=== PATIENT | male | born 1960 | race Caucasian/White ===

== ENCOUNTER 2022-07-11 08:00 | Outpatient (CLI) | payer OTHER ==
--- NOTE | 2022-07-12 18:21 | XRAY Report ---
PROCEDURE: Elbow 3 View LT INDICATIONS: LEFT LATERAL ELBOW EPICONDYLITIS TECHNIQUE: 3 views of the elbow were acquired. COMPARISON: None FINDINGS: Bones: No fractures or dislocations. No suspicious bony lesions. In this patient with this given h istory, scrutiny is given to the lateral epicondyle. No significant findings of epicondylitis can be seen on these images. Soft tissues: There is a moderate elbow joint effusion. No suspicious soft tissue calcifications. IMPRESSION: Moderate joint effusion. No significant bony abnormality is seen by plain film. If it would be helpful for clinical management decision making, please consider a dedicated, schedule d elbow MRI for further evaluation (assuming that there is no contraindication). Reviewed by: Nick Fox MD on 07/12/2022 5:20 PM NIC Approved by: Nick Fox MD on 07/12/2022 5:20 PM NIC Station ID: [id number]
== END 2022-07-11 23:59 | disposition home or self-care (01) ==
LOC: DI.S 08:00
PROVIDERS: ATTEND Emergency Medicine
DX: M77.12 Lateral epicondylitis, left elbow (principal); M25.422 Effusion, left elbow

== ENCOUNTER 2023-06-08 15:09 | Inpatient (IN) | payer BC, OTHER ==
[2023-06-08 16:04] LABS: PT - PROTHROMBIN TIME 10.3 secs (9.9-12.6)
[2023-06-08 16:07] LABS: BASOPHILS # (AUTO) 0.1 10^3/uL (0.0-0.1); BASOPHILS % (AUTO) 0.9 %; EOSINOPHILS # (AUTO) 0.2 10^3/uL (0.0-0.7); EOSINOPHILS % (AUTO) 2.3 %; HCT - HEMATOCRIT 45.9 % (42.0-52.0); HGB - HEMOGLOBIN 15.8 g/dL (14.0-18.0); LYMPHOCYTES # (AUTO) 1.5 10^3/uL (1.5-3.5); LYMPHOCYTES % (AUTO) 19.5 %; MEAN CORPUSCULAR HEMOGLOBIN 33.8 pg (27.0-31.0); MEAN CORPUSCULAR HGB CONC 34.4 g/dL (32.0-36.0); MEAN CORPUSCULAR VOLUME 98.3 fL (80.0-94.0); MEAN PLATELET VOLUME 10.3 fL (7.4-11.4); MONOCYTES # (AUTO) 0.8 10^3/uL (0.0-1.0); MONOCYTES % (AUTO) 9.6 %; NEUTROPHILS # (AUTO) 5.3 10^3/uL (1.5-6.6); NEUTROPHILS % (AUTO) 67.4 %; RED BLOOD COUNT 4.67 10^6/uL (4.70-6.10); RED CELL DISTRIBUTION WIDTH 14.6 % (12.0-15.0); WHITE BLOOD COUNT 7.8 x10^3/uL (4.8-10.8)
[2023-06-08 16:11] LABS: ALBUMIN 4.4 g/dL (3.2-5.5); ALBUMIN/GLOBULIN RATIO 1.5 (1.0-2.2); BILIRUBIN,TOTAL 0.7 mg/dL (0.2-1.0); CALCIUM 9.5 mg/dL (8.5-10.3); CREATININE 0.5 mg/dL (0.6-1.3); POTASSIUM 4.3 mmol/L (3.5-4.5); TOTAL PROTEIN 7.3 g/dL (6.4-8.9)
[2023-06-08 16:12] LABS: PARTIAL THROMBOPLASTIN TIME 27.9 secs (24.9-33.3)
[2023-06-08 16:14] LABS: SLIDE REVIEW? Indicated
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
[2023-06-08 16:30] LABS: PLATELET ESTIMATE, MANUAL NORMAL (130-450,000) (NORMAL); PLATELET MORPHOLOGY PLATELET CLUMPING (NORMAL)
[2023-06-08] MEDS ORDERED: iohexoL-300 100 ML VIAL ONE (17:06)
--- NOTE | 2023-06-08 17:55 | CT Report ---
PROCEDURE: ANGIO HEAD W/WO INDICATIONS: R sided weakness x 2 days CONTRAST: Omni 300 100ml TECHNIQUE: Precontrast 4.5 mm thick angled axial sections acquired from the foramen magnum to the vertex. Afte r the administration of intravenous contrast, 1 mm thick sections acquired through the [place] of [place] is. Postcontrast 4.5 mm thick sections then re-acquired from the foramen magnum to the vertex. 3-di mensional poelnsy-hpuzvwebi-ynicgkagqk (MIP) and/or volume rendering reformats were acquired of the c entral intracranial vasculature. For radiation dose reduction, the following was used: automated ex posure control, adjustment of mA and/or kV according to patient size. COMPARISON: MRI brain, CTA neck 06/08/2023 FINDINGS: Image quality: Excellent. Anterior circulation: Intracranial internal carotid arteries are normal in size and flow. The flow within the paired anterior cerebral arteries is normal and symmetric. The flow within the middle cer ebral arteries is normal and symmetric. The anterior communicating artery is seen. No aneurysms are seen. Posterior circulation: Vertebral arteries are codominant. Visualized portions of the vertebral arter ies demonstrate normal caliber, and join to form a normal appearing basilar artery. Flow within the posterior cerebral arteries is normal and symmetric. No aneurysms are seen. The ventricular system and cortical sulci are unremarkable, consistent for patient's stated age. The re are areas of hypodensity in the periventricular and subcortical white matter. There is an asymmetr ic focus of hypodensity within the left thalamus corresponding to restricted diffusion on MRI brain. There is no acute intra or extra-axial fluid collection. No acute hemorrhage, mass lesion or midline shift. Brainstem is unremarkable. Globes are symmetrical. Sinuses demonstrate minimal scattered mucosal thickening. Osseous structures are intact. IMPRESSION: Asymmetric focus of low-attenuation within left pelvis most suggestive subacute ischemia. No areas of hemodynamically significant stenosis, vascular occlusion or aneurysmal dilation within th e anterior circulation. No areas of hemodynamically significant stenosis, vascular occlusion or aneurysmal dilation within th e posterior circulation. Reviewed by: Esperanza Kraft MD on 06/08/2023 5:53 PM PDT Approved by: Esperanza Kraft MD on 06/08/2023 5:53 PM PDT Station ID: [id number]
--- NOTE | 2023-06-08 17:58 | CT Report ---
PROCEDURE: ANGIO NECK W INDICATIONS: R sided weakness x 2 days CONTRAST: Omni 300 100ml TECHNIQUE: After the administration of intravenous contrast, 1.5 mm axial sections acquired from the aortic arch to the [place] of [place]. Coronal 3-D maximum intensity projection (MIP) and/or volume rendering ref ormats were then performed. For radiation dose reduction, the following was used: automated exposur e control, adjustment of mA and/or kV according to patient size. COMPARISON: MRI brain, CTA head 06/08/2023 FINDINGS: Image quality: Excellent. Carotid system: The great vessels demonstrate a conventional anatomy as they arise from the aortic a [facility]. The origins of the common carotid arteries appear patent. The common carotid arteries demonstr ate normal calibers and courses. The bifurcation regions appear normal bilaterally. Approximately 1. 6 cm from the origin there is a calcified plaque at the wall of the right internal carotid artery dem onstrating approximately 50% stenosis. No hemodynamically significant stenosis within the left sport intern al carotid artery. Posterior circulation: Vertebral arteries are codominant. The origins of the vertebral arteries appea r patent. The more superior portions of the vertebral arteries demonstrate normal course and caliber . They join to form a normal appearing basilar artery. Soft tissues: Visualized neck soft tissues demonstrate no suspicious abnormalities. The thyroid is normal in size and there are no incidental findings. Bones: No suspicious bony lesions. Visualized cervical spine appears normally aligned. IMPRESSION: Approximate 50% stenosis secondary to partially calcified plaque in the proximal aspect of the right internal carotid artery. The estimate of stenosis included in the report of the imaging study was calculated using the NASCET method CLINICAL RECOMMENDATION STATEMENTS: In patients <35 years with an ITN detected on CT, MRI, or extrathyroidal ultrasound, the Committee re commends further evaluation with dedicated thyroid ultrasound if the nodule is "e1 cm and has no susp icious imaging features, and if the patient has normal life expectancy. In patients "e35 years with an ITN detected on CT, MRI, or extrathyroidal ultrasound, the Committee r ecommends further evaluation with dedicated thyroid ultrasound if the nodule is "e1.5 cm and has no s uspicious imaging features, and if the patient has normal life expectancy. (ACR, 2014) Reviewed by: Esperanza Kraft MD on 06/08/2023 5:57 PM PDT Approved by: Esperanza Kraft MD on 06/08/2023 5:57 PM PDT Station ID: [id number]
--- NOTE | 2023-06-08 18:09 | MRI Report ---
PROCEDURE: MRI brain without contrast INDICATIONS: R leg weakness TECHNIQUE: Noncontrast axial T1 spin echo, axial T2 fast spin echo, sagittal and axial FLAIR, coronal T2 fast sp in echo, axial gradient echo, axial diffusion and ADC through the brain. COMPARISON: None. FINDINGS: Image quality: Excellent. CSF Spaces: Basal cisterns are patent. No extra-axial fluid collections. Ventricles are normal in size and shape. Brain: Focal restricted diffusion noted in the right thalamus. No mass effect or midline shift. Susce ptibility sequence unremarkable. Mild atrophy and chronic ischemic change. Normal intravascular flow voids are present. Skull and face: Calvarium has normal marrow signal. Orbits appear normal. Old healed posterior sca lp incision and C1- 2 cerclage wire Sinuses: Sinuses and mastoids are clear. IMPRESSION: Acute to subacute left thalamic lacunar infarct. No mass effect or midline shift. Reviewed by: Kwaku Casarez MD on 06/08/2023 5:07 PM NIC Approved by: Kwaku Casarez MD on 06/08/2023 5:07 PM [facility] Station ID: [id number]
[2023-06-08] MEDS ORDERED: iohexoL-300 100 ML VIAL IVP ONE (20:05)
[2023-06-08] MEDS ORDERED: CLOPIDOGREL 300 MG TABLET PO STA (20:32)
[2023-06-08] MEDS ORDERED: ASPIRIN EC 325 MG TABLET PO STA (20:32)
[2023-06-08] MEDS ORDERED: LORazepam 2 MG/ML VIAL IVP STA (20:35)
[2023-06-08] MEDS ORDERED: ATORVASTATIN 40 MG TABLET PO STA (20:38)
[2023-06-08] MEDS ORDERED: ONDANSETRON 4 MG/2 ML VIAL IVP PRN (20:58)
[2023-06-08] MEDS ORDERED: SODIUM CHLORIDE FLUSH 0.9% 10 ML SYRINGE IVP PRN (20:58)
[2023-06-08] MEDS ORDERED: ACETAMINOPHEN 325 MG TABLET PO PRN (20:58)
[2023-06-08] MEDS ORDERED: PRAVASTATIN 40 MG TABLET PO SCH (21:00)
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
[2023-06-09] MEDS: SODIUM CHLORIDE FLUSH 0.9% 10 ML SYRINGE IVP SCH ×2 (00:35→09:11)
[2023-06-09 05:37] LABS: BASOPHILS # (AUTO) 0.1 10^3/uL (0.0-0.1); BASOPHILS % (AUTO) 0.7 %; EOSINOPHILS # (AUTO) 0.3 10^3/uL (0.0-0.7); EOSINOPHILS % (AUTO) 4.4 %; HCT - HEMATOCRIT 45.7 % (42.0-52.0); HGB - HEMOGLOBIN 15.2 g/dL (14.0-18.0); LYMPHOCYTES # (AUTO) 1.8 10^3/uL (1.5-3.5); LYMPHOCYTES % (AUTO) 25.4 %; MEAN CORPUSCULAR HEMOGLOBIN 32.9 pg (27.0-31.0); MEAN CORPUSCULAR HGB CONC 33.3 g/dL (32.0-36.0); MEAN CORPUSCULAR VOLUME 98.9 fL (80.0-94.0); MEAN PLATELET VOLUME 9.3 fL (7.4-11.4); MONOCYTES # (AUTO) 0.7 10^3/uL (0.0-1.0); MONOCYTES % (AUTO) 10.4 %; NEUTROPHILS # (AUTO) 4.2 10^3/uL (1.5-6.6); NEUTROPHILS % (AUTO) 58.8 %; PLT - PLATELET COUNT 272 10^3/uL (130-450); RED BLOOD COUNT 4.62 10^6/uL (4.70-6.10); RED CELL DISTRIBUTION WIDTH 14.6 % (12.0-15.0); WHITE BLOOD COUNT 7.1 x10^3/uL (4.8-10.8)
[2023-06-09 05:58] LABS: ALBUMIN/GLOBULIN RATIO 1.4 (1.0-2.2); BILIRUBIN,TOTAL 0.8 mg/dL (0.2-1.0); CALCIUM 9.3 mg/dL (8.5-10.3); CREATININE 0.6 mg/dL (0.6-1.3); POTASSIUM 3.9 mmol/L (3.5-4.5); TOTAL PROTEIN 6.8 g/dL (6.4-8.9)
[2023-06-09 05:59] LABS: CHOL/HDL RATIO 5.2 (<5.0); CHOLESTEROL 232 mg/dL; HDL CHOLESTEROL 45 mg/dL; LDL CHOLESTEROL,CALCULATED 161 mg/dL; LDL/HDL RATIO 3.6 (<3.6); TRIGLYCERIDES 128 mg/dL (48-352); VLDL CHOLESTEROL 26 mg/dL
[2023-06-09] MEDS ORDERED: LORazepam 2 MG/ML VIAL IVP PRN (07:38)
[2023-06-09] MEDS ORDERED: CLOPIDOGREL 75 MG TABLET PO SCH (09:00)
[2023-06-09] MEDS ORDERED: NICOTINE 14 MG PATCH TOP SCH (09:00)
[2023-06-09] MEDS ORDERED: ASPIRIN CHEW 81 MG TABLET PO SCH (09:00)
[2023-06-09] MEDS: chlordiazePOXIDE 5 MG CAPSULE PO SCH ×2 (09:11→11:39)
--- NOTE | 2023-06-09 09:19 | PHARMACY PROGRESS NOTE ---
- Best Possible Medication History Admit Date and Time: 06/08/232057 Processed by: Pharmacy Medication History completed: Yes Patient Interview: Completed (pt is taking nothing) As the person ultimately responsible for medication therapy, providers are able to order a medication from an existing home medication list in [facility] via the "Reconcile Routine" prior to Confirmation of that medication by support analyst. Such practice is discouraged except when the physician, in their clinical judgment, deems that a medical need exists for a medication without regard to previous use.
[2023-06-09 12:08] VITALS: BP 163/92
--- NOTE | 2023-06-09 12:51 | Discharge Plan ---
Discharge Plan Problem Reviewed?: Yes Disposition: Home, Self Care Condition: Fair Prescriptions: Atorvastatin Calcium [Lipitor] 80 mg PO QPM #30 tablet Clopidogrel [Plavix] 75 mg PO DAILY #30 tab Aspirin Chewable [[place] Aspirin] 81 mg PO DAILY #30 tab Diet: Cardiac (A low cholesterol diet) Activity Restrictions: Activity as Tolerated Shower Restrictions: No Driving Restrictions: Yes (No driving a vehicle until OK'd by a doctor) Assistance Devices: Walker, Cane Weight Bearing: Full Weight Instruction Topics: Stroke Ischemic, Eat Healthy, Stroke Prepare Home After, Blockage Carotid Artery Health Concerns: You were hospitalized because you had a stroke. It affected the right leg and you now have an abnormal walking gait. You need to use either a cane or a walker for support when walking. You also need to attend outpatient physical therapy to regain strength of that leg. You should not be climbing up and down stairs until a physical therapist or a doctor tells you you can do that. You are now medically and legally forbidden from driving a car, because of the right leg weakness, until a doctor clears you to resume driving. A report has been sent to the Department of Motor Vehicles that you now have a restriction from driving. The police take this restriction very seriously; so if you are found driving with this restriction is in place, you will be arrested. You have been prescribed 3 new medicines because of the stroke: 1 for choleste rol and 2 medicines for your stroke. Please take them as prescribed. All new prescriptions were electronically sent to your pharmacy. You need to adjust your diet, to a better low-cholesterol, low-salt diet. Diet resources were provided for you and your . You need to establish care with a primary care provider. Until that time, please go to any of the [facility] clinics. At that appointment, you need to get referral to a Plastic Eye Technician, to arrange for you to undergo closure of the PFO (patent foramen ovale). A PFO is a congenital heart defect that you were born with, which lets plaque or clots go directly up to your brain. This PFO may have been the cause of the current stroke. It needs to be closed to prevent anpther stroke. We also have diagnosed you as having alcoholism. Since you drink sometimes 5 drinks per day, this is not healthy, and can harm your liver and your brain. You are advised to slowly (over 1-2 weeks) decrease the amount of alcohol that you drink daily, down to 0-2 alcoholic drinks per day maximum. Plan of Treatment: 1) Start taking daily Aspirin, Plavix and Atorvastatin 2) Go to a primary care provider or a walk-in clinic and have a hospital follow- up vist and get referral to a Plastic Eye Technician 3) Start attending outpatient physical therapy for rehab 4) Decrease your alcohol intake over the next 1 to 2 weeks, down to 2 drinks maximum per day 5) You are restricted from driving a car 6) Have appointment with Plastic Eye Technician for PFO closure Care Goals: Improvement in symptoms and stabilization are the goals. Assessment: The patient understands. These instructions are provided as a reminder. Additional Instructions or Follow Up instructions: If you have new neurologic deficits (like change in speech, new or worsening muscle weakness or numbness or unequal facial muscles), or if you have any other concerning symptoms, call 911 to be brought to the ER. Follow-Up Care: Outpatient Rehab - PT No Smoking: If you smoke, Please STOP! Call for help.
--- NOTE | 2023-06-09 14:03 | DISCHARGE SUMMARY ---
Discharge Summary Admit Date: 06/08/23 Discharge Date: 06/09/23 Discharging Provider: Dr Bernie Tran Primary Care Provider: None Code Status: Attempt Resuscitation Condition at Discharge: Fair Discharge Disposition: 01 Home, Self Care - HPI History of Present Illness: 62-year-old male presented to the ER with right leg weakness and numbness since last 48 hours. He also had some imbalance while standing and abnormal gait when walking and has been using a golf club for support. Denies any slurred speech. Denies any left upper or lower extremity weakness or numbness. He also had some numbness in the right wrist as per him. Denies any headache, blurred vision, palpitations or syncope. No chest pain or shortness of breath. Patient is a current smoker who has decreased from 1.5 PPD to 1 PPD currently Also he drinks 2-5 beers nearly every day of the week. Denies any illicit drug use, but used to use drugs when he was younger. The CT head and neck and MRI brain imaging done in the ER showed a 50% R carotid stenosis and a subacute L thalamic lacunar infarct. He received aspirin and a loading dose of Plavix and is being admitted to evaluate and treat his stroke. - HOSPITAL COURSE Hospital Course: 1. Acute ischemic stroke Imaging confirmed a subacute stroke involving left thalamic region. He was admitted to inpatient status due to significant gait impairment. He seen by PT and found to have very abnormal gait due to weakness of the R leg, but mostly due to numbness of the R foot, since he cannot feel the floor surface he is stepping on. PT advised he use a walker or a cane, not a golf club when walking (which he was doing and even brought the golf club into the ER), and PT also recommended that he have outpatient PT and advised to not climb stairs until cleared. I ordered no driving a vehicle, until cleared and submitted a form to [facility]. On telemetry, no Afib was seen. He was discharged on daily aspirin and Plavix. His fasting lipid level showed poorly controlled LDL, and he was discharged on nightly Lipitor. He had an Echo with "bubble" study done, which showed normal LVEF, no clot seen, but he has a widely patent foramen ovale. Since all his testing was done the day after admission, and since he was starting to go into alcohol withdrawal, he was discharged home that next day. All these recommendations (in #1-#6 below) were discussed with him and his , at bedside on the day of discharge. 2. PFO His Echo with "bubble" study showed a widely patent foramen ovale. He was told the PFO needs to be closed. He needs a referral to Cardiology for this. 3. PVD Imaging showed an approximately 50% stenosis secondary to partially calcified plaque in the proximal aspect of the right internal carotid artery. He needs better cholesterol control and to stop smoking. 4. Alcohol abuse He admitted to drinking up to 5 beers a day. His transaminases and plts and INR were normal. He was advised to decrease his intake to 2 drinks/day max. Since all his testing was done the day after admission, and since he was starting to go into alcohol withdrawal, being fidgety and restless, he was discharged home that next day. 5. Hyperlipidemia His fasting lipid level showed poorly controlled LDL of 161, and he was discharged on nightly Lipitor. He was seen by In Home Aide in consult and given dietary recommendations. 6. Nicotine dependence with cigarettes Smoking cessation was recommended and he said he would "speed up his decreased use of cigarettes, by weaning himself off more quickly". - ALLERGIES Allergies/Adverse Reactions: Allergies Allergy/AdvReac Type Severity Reaction Status Date / Time No Known Drug Allergies Allergy Verified 06/08/23 15:16 - MEDICATIONS Home Medications: Ambulatory Orders Medication Instructions Recorded Confirmed Aspirin Chewable [[facility] 81 mg PO DAILY #30 tab 06/09/23 Aspirin] Atorvastatin Calcium [Lipitor] 80 mg PO QPM #30 tablet 06/09/23 Clopidogrel [Plavix] 75 mg PO DAILY #30 tab 06/09/23 - PHYSICAL EXAM AT DISCHARGE General Appearance: positive: No acute distress, Alert, Other (Is fidgety) Eyes Bilateral: positive: Normal inspection, EOMI ENT: positive: ENT inspection nml, No signs of dehydration Neck: positive: Nml inspection, No JVD Respiratory: positive: No respiratory distress, Breath sounds nml Cardiovascular: positive: Regular rate & rhythm, No murmur Abdomen: positive: Non-tender, No distention Skin: positive: Warm, Dry, Other (Very tanned appearance) Extremities: positive: Non-tender, No pedal edema Neurologic/Psychiatric: positive: Oriented x3, Other (R lower leg numbness and 4/5 strength. Patient is fidgety.) - LABS Result Diagrams: 06/09/23 05:11 06/09/23 05:11 - DIAGNOSTIC IMAGING Diagnostic Imaging Results: Final report reviewed - FOLLOW UP Follow Up: See PCP or a provider in a Walk-In Clinic within 1-2 weeks, get referral to Outpt PT, get referral to a Retarder Operator. - TIME SPENT Time Spent in Discharge (Minutes): 40
[2023-06-09] MEDS ORDERED: ATORVASTATIN 40 MG TABLET PO SCH (21:00)
[2023-06-10] MEDS ORDERED: ENOXAPARIN 40 MG/0.4 ML SYRINGE SUBQ SCH (09:00)
== END 2023-06-09 15:10 | disposition home or self-care (01) | DRG 65 ==
LOC: ED 15:09 → MS2 20:58
PROVIDERS: ADMIT Internal Medicine; ATTEND Internal Medicine
DX: I63.9 Cerebral infarction, unspecified (principal); F10.239 Alcohol dependence with withdrawal, unspecified; Q21.12 Patent foramen ovale; G83.11 Monoplegia of lower limb affecting right dominant side; I10 Essential (primary) hypertension; R29.702 NIHSS score 2; R26.89 Other abnormalities of gait and mobility; I65.21 Occlusion and stenosis of right carotid artery; E78.5 Hyperlipidemia, unspecified; F17.210 Nicotine dependence, cigarettes, uncomplicated; R20.0 Anesthesia of skin
CPT/HCPCS: 36415; 70496; 70498; 70551; 80053; 80061; 83690; 84443; 84484; 85025; 85610; 85730; 93005; 93306; 96374; 97162; 97166; 97530; 99284; 99285; A9270; J2060; Q9967; 83721

== ENCOUNTER 2023-08-17 08:00 | Outpatient (CLI) | payer BC ==
--- NOTE | 2023-08-18 08:41 | XRAY Report ---
PROCEDURE: Humerus LT INDICATIONS: LEFT HUMERUS FRACTURE TECHNIQUE: 3 views of the humerus were acquired. COMPARISON: Left humerus radiograph on August 10, 2023. FINDINGS: Bones: Overlying splint obscures fine osseous detail. Similar appearance of minimally comminuted, pr edominantly oblique, fracture of the mid humeral diaphysis. Half shaft width lateral and one shaft wi dth dorsal displacement of the dominant distal fracture fragment. No significant callus formation. No new fracture. Normal glenohumeral alignment. Acromioclavicular and coracoclavicular intervals are co ngruent. Visualized ribs are intact. Soft tissues: Moderate soft tissue swelling of the upper arm. No unintended radiopaque foreign body. Visualized left lung is clear. IMPRESSION: Mid humeral diaphysis comminuted fracture with dorsal and lateral displacement and no significant int erval osseous healing. Reviewed by: Parish Allen MD on 08/17/2023 12:38 PM PDT Approved by: Parish Allen MD on 08/17/2023 12:38 PM PDT Station ID: [id number]
== END 2023-08-17 23:59 | disposition home or self-care (01) ==
LOC: DI.WOS 08:00
PROVIDERS: ATTEND Orthopaedic Surgery
DX: S42.352A Displaced comminuted fracture of shaft of humerus, left arm, initial encounter for closed fracture (principal)

== ENCOUNTER 2023-08-24 08:00 | Outpatient (CLI) | payer BC ==
--- NOTE | 2023-08-24 15:45 | XRAY Report ---
PROCEDURE: Humerus LT INDICATIONS: LEFT HUMERUS FRACTURE TECHNIQUE: 2 views of the humerus were acquired. COMPARISON: Left humerus radiographs 08/17/2023 FINDINGS: Bones: Displaced midshaft fracture of the left humerus is redemonstrated without significant change in alignment compared to the exam from 08/17/2023. Soft tissues: No suspicious soft tissue calcifications or masses. IMPRESSION: Displaced left humeral shaft fracture is again seen without significant change in alignment. Reviewed by: Truong Mckeon MD on 08/24/2023 3:44 PM PDT Approved by: Truong Mckeon MD on 08/24/2023 3:44 PM PDT Station ID: [id number]
== END 2023-08-24 23:59 | disposition home or self-care (01) ==
LOC: DI.WOS 08:00
PROVIDERS: ATTEND Orthopaedic Surgery
DX: S42.332A Displaced oblique fracture of shaft of humerus, left arm, initial encounter for closed fracture (principal)

== ENCOUNTER 2023-09-15 08:00 | Outpatient (CLI) | payer BC ==
--- NOTE | 2023-09-15 08:49 | XRAY Report ---
PROCEDURE: Humerus LT INDICATIONS: LEFT HUMERUS FRACTURE TECHNIQUE: 2 views of the humerus were acquired. COMPARISON: None. FINDINGS: Bones: Improved alignment of the comminuted, mildly displaced fracture of the middle humerus shaft. No bone callus formation. Soft tissues: No suspicious soft tissue calcifications or masses. IMPRESSION: Improved alignment of the comminuted, mildly displaced fracture of the middle humeral shaft, without bone callus formation. Reviewed by: Hari Bowden on 09/15/2023 8:48 AM PDT Approved by: Hari Bowden on 09/15/2023 8:48 AM PDT Station ID: [id number]
== END 2023-09-15 23:59 | disposition home or self-care (01) ==
LOC: DI.WOS 08:00
PROVIDERS: ATTEND Orthopaedic Surgery
DX: S42.332A Displaced oblique fracture of shaft of humerus, left arm, initial encounter for closed fracture (principal)

== ENCOUNTER 2023-10-01 08:00 | Outpatient (CLI) | payer BC ==
--- NOTE | 2023-10-01 21:12 | XRAY Report ---
PROCEDURE: Humerus LT INDICATIONS: LEFT HUMERUS FRACTURE TECHNIQUE: 4 views of the humerus were acquired. COMPARISON: 08/17/2023 and 09/15/2023. FINDINGS: Bones: Redemonstration of comminuted, displaced mid shaft fracture of the left humerus. There appear s to be slightly increased posterior angulation as well as increased overriding of the distal fractur e fragment compared to the prior study. Other bones appear intact. Left elbow stable in appearance an d positioning. Soft tissues: No suspicious soft tissue calcifications or masses. IMPRESSION: Comminuted, displaced fracture of the mid left humeral shaft with mild interval increase in displacem ent as noted by increased overriding fracture fragments and mildly increased posterior angulation. No significant bridging callus formation or periosteal reaction noted. Reviewed by: Milton Chávez MD on 10/01/2023 9:11 PM PST Approved by: Milton Chávez MD on 10/01/2023 9:11 PM PST Station ID: [id number]
== END 2023-10-01 23:59 | disposition home or self-care (01) ==
LOC: DI.WOS 08:00
PROVIDERS: ATTEND Orthopaedic Surgery
DX: S42.352D Displaced comminuted fracture of shaft of humerus, left arm, subsequent encounter for fracture with routine healing (principal)

== ENCOUNTER 2023-10-27 08:00 | Outpatient (CLI) | payer BC ==
--- NOTE | 2023-10-27 14:05 | XRAY Report ---
PROCEDURE: Humerus LT INDICATIONS: LEFT HUMERUS FRACTURE TECHNIQUE: 2 views of the humerus were acquired. COMPARISON: X-ray humerus 10/01/2023 FINDINGS: Bones: Midshaft humeral fracture with approximately 5.1 cm overlap of proximal distal fragments. Ali gnment is otherwise stable. No dislocation at the glenohumeral joint space. No suspicious bony lesion s. Soft tissues: No suspicious soft tissue calcifications or masses. IMPRESSION: Stable alignment of mid humeral shaft fracture. Reviewed by: Esperanza Kraft MD on 10/27/2023 2:04 PM PST Approved by: Esperanza Kraft MD on 10/27/2023 2:04 PM PST Station ID: [id number]
== END 2023-10-27 23:59 | disposition home or self-care (01) ==
LOC: DI.WOS 08:00
PROVIDERS: ATTEND Orthopaedic Surgery
DX: S42.332D Displaced oblique fracture of shaft of humerus, left arm, subsequent encounter for fracture with routine healing (principal)

== ENCOUNTER 2023-10-29 12:47 | Outpatient (CLI) | payer BC ==
--- NOTE | 2023-10-29 16:34 | Ultrasound Report ---
PROCEDURE: Duplex Ext Veins Left INDICATIONS: LUE EDEMA TECHNIQUE: Real-time imaging, as well as color and pulse Doppler interrogation, were performed of th e lower extremity deep veins from the inguinal ligament to the popliteal fossa. Attempted visualizati on of the calf veins was performed. COMPARISON: None. FINDINGS: The deep veins are normally compressible, and free of intraluminal thrombus. Color and pu lse Doppler demonstrate normal phasic intraluminal flow. There is normal augmentation response to di stal compression maneuver. IMPRESSION: No deep venous thrombosis of the visualized lower extremity. Reviewed by: Kwaku Casarez MD on 10/29/2023 3:33 PM [place] Approved by: Kwaku Casarez MD on 10/29/2023 3:33 PM [place] Station ID: [id number]
== END 2023-10-29 12:48 | disposition home or self-care (01) ==
LOC: DI 12:47
PROVIDERS: ATTEND Physical Medicine & Rehabilitation
DX: R60.0 Localized edema (principal)

== ENCOUNTER 2023-11-26 08:00 | Outpatient (CLI) | payer BC ==
--- NOTE | 2023-12-02 11:21 | XRAY Report ---
PROCEDURE: Humerus LT INDICATIONS: LEFT HUMERUS FRACTURE TECHNIQUE: 3views of the humerus were acquired. COMPARISON: X-ray left fingers dated 10/27/2020. FINDINGS: Bones: Osteopenia. Mid shaft fracture of the left humerus again identified. Minimal if any callus fo rmation is seen around the fracture site. Fracture fragments appear displaced, not well aligned. Supe rimposed brace limits evaluation. Soft tissues: Unremarkable IMPRESSION: 1. Minimal if any callus formation around the fracture site. 2. Fracture fragments do not appear well aligned. Reviewed by: Erlin Wheeler MD on 11/26/2023 2:10 PM PST Approved by: Erlin Wheeler MD on 11/26/2023 2:10 PM PST Station ID: [id number]
== END 2023-11-26 23:59 | disposition home or self-care (01) ==
LOC: DI.WOS 08:00
PROVIDERS: ATTEND Orthopaedic Surgery
DX: S42.332A Displaced oblique fracture of shaft of humerus, left arm, initial encounter for closed fracture (principal)

== ENCOUNTER 2024-01-06 14:04 | Outpatient (CLI) | payer BC | END 2024-01-06 14:05 | disposition home or self-care (01) | LOC: LAB.S 14:04 | PROVIDERS: ATTEND Orthopaedic Surgery | DX: S42.332A Displaced oblique fracture of shaft of humerus, left arm, initial encounter for closed fracture (principal) | CPT/HCPCS: 36415; 82306 ==

== ENCOUNTER 2024-01-07 10:00 | Outpatient (CLI) | payer BC ==
--- NOTE | 2024-01-07 22:22 | XRAY Report ---
PROCEDURE: Humerus LT INDICATIONS: LEFT HUMERUS FRACTURE TECHNIQUE: 2 views of the humerus were acquired. COMPARISON: X-ray left humerus 11/26/2023. FINDINGS: Bones: There is an oblique fracture of the humeral shaft with significant displacement and angulatio n. No suspicious bony lesions. Soft tissues: No suspicious soft tissue calcifications or masses. IMPRESSION: A humeral shaft fracture with significant displacement and angulation. Alignment is unchanged. No crispin dging osteophyte is visible. Reviewed by: Mahin De Anda MD on 01/07/2024 10:20 PM PST Approved by: Mahin De Anda MD on 01/07/2024 10:20 PM PST Station ID: [id number]
== END 2024-01-07 23:59 | disposition home or self-care (01) ==
LOC: DI.WOS 10:00
PROVIDERS: ATTEND Orthopaedic Surgery
DX: S42.332D Displaced oblique fracture of shaft of humerus, left arm, subsequent encounter for fracture with routine healing (principal)